=== PATIENT | male | born 1970 | race Caucasian/White ===

== ENCOUNTER 2022-08-21 10:09 | Outpatient (CLI) | payer OTHER, SELFPAY ==
--- OUTSIDE RECORDS SUMMARY | 2022-08-21 10:45 | XMS_ITS | Encounter Summary ---
:1970 Author Organization [facility] Address [address] [place] [address] Care Team Providers Name Role Phone Unavailable Primary Care Provider Unavailable Encounter Details Date Type Department Care Team Description 01/12/2013 Hospital Encounter HX [facility] Margarito Smith M.D. [address] [place] [phone] (Wo rk) Social History Tobacco Use Types Packs/Day Years Used Date Smoking Tobacco: Never Assessed Sex Assigned at Date Recorded Not on file documented as of this encounter Last Filed Vital Signs Vital Sign Reading Time Taken Comments Blood Pressure 138/78 01/12/2013 2:44 PM CDT Pulse 64 01/12/2013 2:08 PM CDT Temperature - - Respiratory Rate 20 01/12/2013 2:08 PM CDT Oxygen Saturation - - Inhaled Oxygen Concentration - - Weight 65.3 kg (143 lb 15.4 oz) 01/12/2013 2:08 PM CDT Height - - Body Mass Index - - documented in this encounter Progress Notes Yahir Smith M.D. - 01/12/2013 1:54 PM CDT [id number] HISTORY OF PRESENT ILLNESS Parminder is a 42-year-old male who presents to clinic today for a blood pressure check. Patient states that the last few times he has gone to the dentist's office, they have told him that his blood pressure was elevated. His became concerned and so recommended that he come into the clinic today to have his blood pressure checked and discuss options. Patient states that he otherwise feels well. He does not have any problems with persistent headaches or dizziness. He denies having chest pressure, chest pain or palpitations. He does get occasional migraines, but he does have an aura associated with it, as he will lose his peripheral vision and will get moving color of lights and he will start a medication which usually resolves it and he very rarely progresses to go on to have a full-blown migraine. If he does not catch the symptoms and take medication when he gets the aura, he will develop a headache. He believes he probably started getting these migraines in the past 10 years. His just giv es him an zmdy-azi-fmpjubr medication, he believes it is Excedrin but is not for sure. He denies problems with shortness of breath or dyspnea on exertion. He does not have problems with lower extremityedema or PND. PAST MEDICAL/SURGICAL HISTORY 1. Migraines. 2. Vasectomy. CURRENT MEDICATIONS Uceo-jic-tkpdidt migraine headache medication as needed. ALLERGIES No known drug allergies. Has some allergy to [place] dust which causes rhinitis and cough. SOCIAL HISTORY Patient is not a smoker. He does use alcohol. He estimates he probably has a couple glasses of wine 2 to 3 days per week and just on a social basis. FAMILY HISTORY Mother is healthy. Father is healthy. He believes that his maternal great- grandmother had some hypertension. There is a history of strokes on his paternal side, as his paternal grandfather had a stroke. Maternal grandfather had Alzheimer. Maternal grandmother had some heart problems, as he knows she had a pacemaker, and a maternal aunt had a history of a brain aneurysm. He does have siblings who are all healthy. SYSTEMS REVIEW No problems with fevers, chills or vision changes. No difficulty with swallowing. Please see HPI above for cardiovascular risks. No abdominal pain, nausea, vomiting, diarrhea. Bowel movements are fairly regular. No blood in his stool or black-tarry stools. He does not have any problems with urination or sexual dysfunction. No problems with numbness or tingling or lower extremity swelling. He does exercise; he tends to do more walking in the summer when the weather is nice in the spring, summer and fall months, but he also does do lifting of some weights once in a while, on a osroxt-oturp-p-week basis. His weight has been fairly stable. VITAL SIGNS Temperature of 37, pulse of 64, respiratory rate of 20, O2 sat 98% on room air. Blood pressure 136/80; on repeat it was 138/78. Weight of 65.3kg. PHYSICAL EXAMINATION GENERAL: Patient is alert. He does not appear to be in acute distress. HEENT: Head is normocephalic, atraumatic. Pupils equal, round, and reactive to light. Extraocular muscles are intact. There is no conjunctivitis or scleral icterus. Tympanic membranes are pearly evans with a good light reflex. Oropharynx shows moist mucous membranes; no erythema or exudates. NECK: Supple. No lymphadenopathy, thyromegaly or carotid bruits. RESPIRATORY: Lungs are clear on auscultation without wheezes or crackles. CARDIOVASCULAR: Heart is regular rate and rhythm. There is a normal S1, S2. No murmurs, gallops or rubs. Pedal pulses palpable and symmetric. ABDOMEN: Soft, nontender, nondistended. Positive bowel sounds. No hepatosplenomegaly. I cannot appreciate any abdominal bruits. GENITOURINARY: Deferred. NEUROLOGIC: He is alert and oriented x3. Cranial nerves II through XII are intact. There are no focal neurologic deficits. IMPRESSION/REPORT/PLAN Prehypertension. At this time discussed with patient that he is likely in the prehypertension stagesand we reviewed what goal blood pressure ranges are. Encouraged him to start with some therapeutic lifestyle modifications, including a low-salt diet. Did give him a handout on the DASH diet. Also discussed importance of getting some regular cardiovascular exercise. He may certainly continue with doing more isometric exercises with weightlifting but also include cardiovascular exercises for heart health. Patient unfortunately was not fasting today but I did discuss with him making sure that we reduce his other risk factors, such as checking a cholesterol panel as well as making sure that his kidneyfunction is normal. We discussed the risks of uncontrolled hypertension. I did encourage him to maybe check his blood pressure occasionally when he is at the grocery store or pharmacy and keep a running log of them. I would like to see him back in about 4 to 6 months for a followup and a recheck, and if he starts to become more elevated with a systolic blood pressure greater than 140, I would recommend starting him on some medication to help reduce his risk for end-organ damage. Patient will return for blood work and we will notify him of those test results when they are completed. If he has any further concerns, he should call or return to clinic. Yahir Smith M.D./kehinde Electronically Signed By: YAHIR SMITH MD On: 04/20/2013 08:35 AM Source: [facility] MHSDOLBEYNONRADSYS Document Id: [id number] documented in this encounter Miscellaneous Notes Miscellaneous - Yahir Smith M.D. - 01/12/2013 2:44 PM CDT Ambulatory Vitals Height Weight Ambulatory Vitals Height Weight Entered On: 01/12/2013 14:44 CDT Performed On: 01/12/2013 14:44 CDT by YAHIR SMITH MD Vitals/Ht/Wt Systolic Blood Pressure : 138 mmHg Diastolic Blood Pressure : 78 mmHg NIBP Mean : 98 mmHg YAHIR SMITH MD - 01/12/2013 14:44 CDT Source: [facility] POWERCHART Document Id: [id number] CDT!5 Miscellaneous - Conversion, Historical Provider Ser - 01/12/2013 2:08 PM CDT Adult Intermediate Accountant Intake/History Adult Intermediate Accountant Intake/History Entered On: 01/12/2013 14:11 CDT Performed On: 01/12/2013 14:08 CDT by ANISHA MONTANO Intake Chief Complaint : BLOOD PRESSURE CHECK Temperature Core : 37.0 DegC(Converted to: 98.6 DegF) Peripheral Pulse Rate : 64 /min Respiratory Rate : 20 /min Heart Rhythm : Regular Systolic Blood Pressure : 136 mmHg Diastolic Blood Pressure : 80 mmHg NIBP Mean : 99 mmHg BP Location : Right upper extremity Blood Pressure Cuff Size : Regular SpO2 : 98 % Actual Weight : 65.3 kg(Converted to: 143 lb 15 oz) Dosing Weight Clinic : 65.3 kg ANISHA MONTANO - 01/12/2013 14:08 CDT General Info Languages : Sinhala ANISHA MONTANO - 01/12/2013 14:08 CDT Subjective Pain Symptoms : No ANISHA MONTANO - 01/12/2013 14:08 CDT Dependent Habits Tobacco Use/Currently Using : No Smoking Status : Never smoker ANISHA MONTANO - 01/12/2013 14:08 CDT Source: [facility] [employer] Document Id: [id number] CDT!22 documented in this encounter Plan of Treatment Not on filedocumented as of this encounter Visit Diagnoses Not on filedocumented in this encounter
--- OUTSIDE RECORDS SUMMARY | 2022-08-21 10:45 | XMS_ITS | Encounter Summary ---
:1970 Author Organization [facility] Address [address] [place] [address] Care Team Providers Name Role Phone Unavailable Primary Care Provider Unavailable Encounter Details Date Type Department Care Team Description 01/19/2013 Hospital Encounter HX [facility] Margarito Coronado M.D. [address] [place] [phone] (Wo rk) Social History Tobacco Use Types Packs/Day Years Used Date Smoking Tobacco: Never Assessed Sex Assigned at Date Recorded Not on file documented as of this encounter Miscellaneous Notes Miscellaneous - Yahir Coronado M.D. - 01/21/2013 3:40 PM CDT Normal Results Letter 21 Jan 2013 REBECCA CASTILLO [address] [place] [id number] Dear REBECCA JONATHAN, I am pleased to report the results from your most recent blood work. Your kidney function (creatinine) is normal as well as your electrolytes (sodium, potassium). Your total cholesterol level is slightly high at 226, the rest of your lipid types (HDL good cholesterol and LDL bad cholesterol) are ac ceptable. I do recommend that you follow a low fat and cholesterol diet in addition to the low salt diet that we discussed in the office. I do recommend having this monitored every 3-5 years. If you have any questions about your blood work, please do not hesitate to contact the office. Result Name Current Result Normal Range Sodium Lvl (mmol/L) 139 01/19/2013 135 - 145 Potassium Lvl (mmol/L) 4.3 01/19/2013 3.5 - 5.0 Chloride (mmol/L) 102 01/19/2013 95 - 106 CO2 (mmol/L) 26 01/19/2013 21 - 32 AGAP (mmol/L) 15 01/19/2013 7 - 16 Glucose Fasting (mg/dL) 81 01/19/2013 70 - 99 Creatinine (mg/dL) 0.9 01/19/2013 0.8 - 1.3 EGFR (MDRD) >60.0 01/19/2013 >=60.0 - EGFR (MDRD) >60.0 01/19/2013 >=60.0 - BUN (mg/dL) 17 01/19/2013 5 - 24 Calcium Lvl (mg/dL) 9.6 01/19/2013 8.4 - 10.3 Cholesterol (mg/dL) (H) 226 01/19/2013 120 - 200 Trig (mg/dL) 101 01/19/2013 35 - 185 HDL (mg/dL) 83 01/19/2013 >=40 - LDL Calculated (mg/dL) 123 01/19/2013 60 - 130 Chol/HDL Ratio 2.7 01/19/2013 0.0 - 4.5 LDL/HDL 1 01/19/2013 Sincerely, YAHIR CORONADO [address] [place] [id number] Electronic Signature Electronically Signed By: YAHIR CORONADO MD On: 21 Jan 2013 This document has images extracted. Source: [facility] [employer] Document Id: [id number] Electronically signed by Julissa [facility] University Hospitalstan Deployment Engineer [id number] at 02/20/2017 11:41 AM CDT documented in this encounter Plan of Treatment Not on filedocumented as of this encounter Procedures Procedure Name Priority Date/Time Associated Diagnosis Comme nts LIPID PANEL, S Routine 01/19/2013 8:40 AM Results for this CDT procedure are i n the results section. BASIC METABOLIC Routine 01/19/2013 8:40 AM Result s for this PANEL, S/P CDT procedure are i n the results section. documented in this encounter Results BMP (Basic Metabolic Panel) (01/19/2013 8:40 AM CDT) P athologist Signature Sodium, S 139 135 - 145 POWERCHART MMOLL Potassium, S 4.3 3.5 - 5.0 POWERCHART MMOLL Chloride, S 102 95 - 106 POWERCHART MMOLL CO2 Total 26 21 - 32 POWERCHART MMOLL Glucose, 81 70 - 99 POWERCHART Fasting, S MGDL BUN (Blood Urea 17 5 - 24 POWERCHART Nitrogen), S MGDL Creatinine 0.9 0.8 - 1.3 POWERCHART MGDL Calcium, Total, 9.6 8.4 - 10.3 POWERCHART S MGDL Anion Gap 15 7 - 16 POWERCHART MMOLL HXeGFR (MDRD) >60.0 >=60.0 POWERCHART eGFR >60.0 >=60.0 POWERCHART Black/ Specimen (Source) Anatomical Collection Method Collection Time Re ceived Time Location / / Volume Laterality Blood 01/19/2013 8:40 AM CDT Yahir Coronado M.D. LAB BLOOD ADD-ON Performing Organization Address City/State/ZIP Code Phon e Number POWERCHART (ABNORMAL) Lipid Panel (01/19/2013 8:40 AM CDT) [facility] gist Method Time Signature Cholesterol, Total 226 (H) 120 - 200 POWERCHART MGDL HX HDL 83 >=40 MGDL POWERCHART Triglycerides 101 35 - 185 POWERCHART MGDL Calculated LDL 123 60 - 130 POWERCHART MGDL Total 2.7 0.0 - 4.5 POWERCHART Cholesterol/HDL Ratio HXLDL/HDL 1 POWERCHART Specimen (Source) Anatomical Collection Method Collection Time Re ceived Time Location / / Volume Laterality Blood 01/19/2013 8:40 AM CDT Yahir Coronado M.D. LAB BLOOD ADD-ON Performing Organization Address City/State/ZIP Code Phon e Number POWERCHART documented in this encounter Visit Diagnoses Not on filedocumented in this encounter
--- OUTSIDE RECORDS SUMMARY | 2022-08-21 10:45 | XMS_ITS | Encounter Summary ---
:1970 Author Organization [facility] Address [address] [place] [address] Care Team Providers Name Role Phone Elsewhere, Pcp Primary Care Provider Unavailable Reason for Visit Reason Comments Sinus Symptoms since Thurs noct; +fever, or bital pressure Encounter Details Date Type Department Care Team Description 12/04/2020 Office Visit Urgent Care, [facility], Conges tion Sinus (Primary Dx); [place], in [facility] Goldie Bradshaw APRN, Fever O f Unknown Origin [place], [place] C.N.P., D.N.P. [address] [place] [address] [place] [phone] (Wo rk) Social History Tobacco Use Types Packs/Day Years Used Date Smoking Tobacco: Never Smokeless Tobacco: Never Sex Assigned at Date Recorded Not on file documented as of this encounter Last Filed Vital Signs Vital Sign Reading Time Taken Comments Blood Pressure 134/93 12/04/2020 10:24 AM CDT Pulse 66 12/04/2020 10:24 AM CDT Temperature 36.9 ??C (98.4 ??F) 12/04/2020 10:24 AM CDT Respiratory Rate 18 12/04/2020 10:24 AM CDT Oxygen Saturation 97% 12/04/2020 10:24 AM CDT Inhaled Oxygen Concentration - - Weight 63 kg (138 lb 14.2 oz) 12/04/2020 10:24 AM CDT Height 171 cm (5' 7.32) 12/04/2020 10:24 AM CDT Body Mass Index 21.55 12/04/2020 10:24 AM CDT documented in this encounter Patient Instructions Patient InstructionsGoldie Alexander APRN, C.NDean, D.N.P. - 12/04/2020 10:15 AM CDT Home care measures for relief of sinus symptoms as needed such as steam showers, sinus massage, and Neti Pot use. If unable to use Neti Pot, may benefit from using saline nasal spray a couple times a day. Take claritin or mague or zyrtec daily to help dry up sinuses as well. Off brand is fine. COVID-19 results will be available online in a couple hours. Use a humidifier in the room for the next 10-14 days. May use fuge-xun-znkibdv Flonase to help with congestion. Drink warm liquids throughout the day. Follow-up if no improvement in 5-7 days or if new or concerning symptoms develop. documented in this encounter Progress Notes Goldie Alexander APRN, C.N.P., Tayler.N.P. - 12/04/2020 10:15 AM CDT SUBJECTIVE CHIEF COMPLAINT / REASON FOR VISIT Sinus Symptoms (since ; +fever, orbital pressure). HISTORY OF PRESENT ILLNESS Parminder Ruff is a 50 y.o. male who presents with known COVID-19 exposure last Saturday. He reports that he got a test on that came back negative but that he is not feeling any better. He reports he has been taking tylenol and OTC generic cold medicine with minimal relief. He reports congestion, runny nose, slight cough, sore throat, and fevers. REVIEW OF SYSTEMS A brief review of systems was negative except for that mentioned in the history of present of illness. The patient's social history, medical history, and home medications were reviewed in the electronic medical record. ALLERGIES/CONTRAINDICATIONS No Known Allergies OBJECTIVE VITAL SIGNS BP (!) 134/93 (BP Location: Right arm, Patient Position: Sitting, Cuff Size: Regular) Pulse 66 Temp 36.9 ??C (Temporal) Resp 18 Ht 171 cm Wt 63 kg SpO2 97% BMI 21.55 kg/m?? PHYSICAL EXAMINATION General: This patient is alert and in no acute distress. HEENT: Pupils are PERRLA. Conjunctivae clear without hemorrhages or exudates. Auditory canals are normal without erythema or edema. TMs are pearly evans and with effusions bilaterally without erythema. Oral cavity is adequately hydrated. Posterior pharynx is erythematous with drainage present. Neck: Supple without lymphadenopathy. Respiratory: Effort is easy. Lung sounds are clear to auscultation. Cardiovascular: S1, S2 are present. Normal rate and rhythm. Musculoskeletal: Grossly intact. No deformities are noted. Skin: Normal color, temperature and moisture. No rashes or lesions are noted. ASSESSMENT / PLAN #1 Congestion Sinus #2 Fever Of Unknown Origin Other orders - SARS Coronavirus-2 RNA, V Symptomatic Home care measures for relief of sinus symptoms as needed such as steam showers, sinus massage, and Neti Pot use. If unable to use Neti Pot, may benefit from using saline nasal spray a couple times a day. Take claritin or mague or zyrtec daily to help dry up sinuses as well. Off brand is fine. COVID-19 results will be available online in a couple hours. Use a humidifier in the room for the next 10-14 days. May use llhb-fpo-iasnsoh Flonase to help with congestion. Drink warm liquids throughout the day. Follow-up if no improvement in 5-7 days or if new or concerning symptoms develop. Patient verbalizedunderstanding and agrees with this plan. No further needs at this time. Electronically signed by: Sarahi Alexander APRN, C.N.P., D.N.P. 12/04/20 10:44 AM CDT documented in this encounter Plan of Treatment Not on filedocumented as of this encounter Procedures Procedure Name Priority Date/Time Associated Diagnosis Comme nts IFLU A, B, SARS STAT 12/04/2020 10:49 AM Resul ts for this COV-2, PCR, RAPID,V CDT procedur e are in the results section. documented in this encounter Results Influenza A/B, SARS CoV-2, PCR, Rapid, Varies (12/04/2020 10:49 AM CDT) P athologist Signature Influenza A, CANCELED 12/04/2020 NPRG PCR, Rapid, V 10:50 AM CDT Comment: Result canceled by the ancillar y. Influenza B, PCR, Rapid, V CANCELED 12/04/2020 10 :50 AM CDT NPRG Comment: Result canceled by the ancillar y. SARS CoV-2, PCR, Rapid, V Undetected Undetected 12/04/2020 1 1:12 AM CDT NPRG Comment: ----ADDITIONAL INFORMATION---- Testing was performed using the Nilda SA RS-CoV-2 and Influenza A/B Reagent assay from [employer], which has received Emergency Use Authori zation(EUA) by the U.S. Food and Drug Administration . Fact sheets for this Emergency Use Autho rization (EUA) assay can be found at the following link s: For Healthcare Providers: https://www.fda.gov/media/567191/downloa d For Patients: https://www.fda.gov/media/568731/downloa d Infl A/B, SARS CoV-2, PCR, Swab, Nasopharynx 12/04 10:49 AM CDT NPRG Source Specimen Anatomical Collection Method Collection Time Receive d Time (Source) Location / / Volume Laterality Varies 12/04/2020 10:49 12/04/2020 AM CDT 10:49 AM CDT Goldie Alexander APRN, C.N.P., D.N.P. LAB MICROBI OLOGY - GENERAL ORDERABLES Performing Organization Address City/State/ZIP Code Phon e Number [facility]- [address] [place], [place] [address] [place] [address] [place] documented in this encounter Visit Diagnoses Diagnosis Congestion Sinus - Primary Fever Of Unknown Origin documented in this encounter Additional Health Concerns Infection Onset Date Last Indicated Resolved Time COVID19 Pending 12/04/2020 12/04/2020 12/04/2020 10:50 AM CDT COVID19 Pending 12/04/2020 12/04/2020 12/04/2020 11:12 AM CDT documented as of this encounter Care Teams Medical Affairs Manager Relationship Specialty Start Date End Date Elsewhere, Pcp PCP - General 05/24/19 documented as of this encounter
--- OUTSIDE RECORDS SUMMARY | 2022-08-21 10:45 | XMS_ITS | Encounter Summary ---
:1970 Author Organization [facility] Address [address] [place] [address] Care Team Providers Name Role Phone Unavailable Primary Care Provider Unavailable Encounter Details Date Type Department Care Team Description 03/27/2016 Hospital Encounter HX [facility] Alfie Marquez M .D. Social History Tobacco Use Types Packs/Day Years Used Date Smoking Tobacco: Never Assessed Sex Assigned at Date Recorded Not on file documented as of this encounter Last Filed Vital Signs Vital Sign Reading Time Taken Comments Blood Pressure 122/80 03/27/2016 8:45 AM CDT Pulse - - Temperature - - Respiratory Rate - - Oxygen Saturation - - Inhaled Oxygen Concentration - - Weight 63.1 kg (139 lb 1.8 oz) 03/27/2016 8:45 AM CDT Height - - Body Mass Index - - documented in this encounter Medications at Time of Discharge Medication Sig Dispensed Refills Start Date End Date lisinopriL Take 1 tablet by 0 03/22/2013 (PRINIVIL,ZESTRIL) 10 mg mouth daily. tablet documented as of this encounter Consult Notes Alfie Marquez M.D. - 03/27/2016 8:37 AM CDT [id number] CHIEF COMPLAINT/REASON FOR VISIT Right ear pain with hearing loss. HISTORY OF PRESENT ILLNESS This is a 45-year-old gentleman seen in consultation for above complaint at the request of Yahir Smith. HISTORY OF PRESENT ILLNESS This is a 45-year-old gentleman who states that he hears some fluttering in his right ear at times. He denies any significant hearing changes or any pain, drainage, dizziness. He states at night he does hear some ringing. PAST MEDICAL/SURGICAL HISTORY, MEDICATION, FAMILY HISTORY Please refer to chart dated 03/27/2016, under the summary review provider ambulatory tab in the medical record. VITAL SIGNS Temperature 35.6, blood pressure 122/80. PHYSICAL EXAMINATION GENERAL: No acute distress. Patient alert, oriented x3. EYES: PERRL. EOMI. Ears: Bilateral TMs are intact. No perforations or effusions seen. Face: Cranial nerve 7 intact. Symmetric. No scars or deformities seen. Nose, no rhinorrhea. No mucopurulence. Nasalmucosa is pink. Oral cavity is clear. Tongue mobile. Floor of mouth soft. Oropharynx is clear. NECK: Flat. No mass or adenopathy palpated. Tuning fork test performed. Bilateral air conduction greater than bone conduction bilaterally. Bilateral Jeffries is midline. Audiogram is reviewed with the patient, which shows completely normal hearing, normal audiogram. IMPRESSION/REPORT/PLAN 1. Possible temporomandibular joint on the right 2. Mild tinnitus. PLAN: At this time we will see him back as needed. Alfie Marquez M.D./pos cc: Yahir Smith M.D. [facility] [place] [address] CHART SIGNED BUT NOT REVIEWED TO EXPEDITE PROCESSING Electronically Signed By: ALFIE MARQUEZ MD On: 04/27/2016 10:36 AM Modified by and Electronically Signed by: ALIFE MARQUEZ MD On: 04/27/2016 10:36 AM Source: [facility] MHSDOLBEYNONRADSYS Document Id: [id number] documented in this encounter Miscellaneous Notes Miscellaneous - Alfie Marquez M.D. - 03/27/2016 10:28 AM CDT Ambulatory Patient Summary [address] [place], [place] [id number] Visit Information Name: REBECCA CASTILLO Shayy [facility] Number: [id number] Current Date: 03/27/2016 10:28:28 Physicians Attending Provider: ALFIE MARQUEZ MD Primary Care Provider: YAHIR SMITH MD REBECCA CASTILLO has been given the following list of follow-up instructions, medication list, and patient education materials: Follow-up Instructions Your Medications Here is a list of your medications. It is important to take your medications as directed. Use a pillbox or chart to help remind you to take your medications. Please let your doctor or nurse know if you have problems taking your medications. Medication/Strength How to Take Indications/Special Instructions/Comments/Notes for Patient Medication Changes/Routing lisinopril (lisinopril 10 mg oral tablet) 1 Tablet(s), Oral, once a day Stop Taking the Following Medications: Medication list as of 03-27-16 10:28 Attention: If you have any medications at home that are not on this list, DO NOT take them until youcontact your provider for clarification. Give a copy of your medication list to your primary care provider. Update your medication list any time medications or doses are changed and carry your medication list at all times in case of emergency. Electronically Signed By: ALFIE MARQUEZ MD Signed On:27-MAR-2016 10:28:27 Your Allergies & Intolerances Substance Reaction Symptoms Category Comments No Known Allergies Drug Your Problem List Problem Status Onset Comments Elevated Blood Pressure Active 01/12/2013 Pain Ear R Active Your Upcoming Appointments Date Time Location Provider No Appointments found Attention: Contact your local Clinic if further appointment detail needed. Consider Using Patient Online Services Patient Online Services is a secure online and Mobile application that lets you: ?? View lab and test results ?? View portions of your medical record including clinical notes, immunizations and discharge summaries ?? Request an appointment or medication refill ?? Review your appointment schedule ?? Send secure messages to your care team Its easy to create an account if you dont have one. Go to [email or web address] and click on Create Your Account. Then, follow the directions to complete the online form. Youll be asked for your [facility] number which you can find at the top of this document. Your Goals/Additional instructions: Source: [facility] POWERCHART Document Id: [id number] Miscellaneous - Alfie Marquez M.D. - 03/27/2016 10:28 AM CDT Ambulatory Discharge Medication List [place] [id number] [facility], [address] [place], [place] [id number] Visit Information Name: REBECCA CASTILLO [facility] Number: [id number] Visit Date: 03/27/2016 10:28:28 Attending Provider: ALFIE MARQUEZ MD Primary Care Provider: YAHIR SMITH MD REBECCA CASTILLO has been given the following list of medications: Your Medications It is important to take your medications as directed. Use a pill box or chart to help remind you to take your medications. Please let your doctor or nurse know if you have problems taking your medications. Medication/Strength How to Take Indications/Special Instructions/Comments/Notes for Patient Medication Changes/Routing lisinopril (lisinopril 10 mg oral tablet) 1 Tablet(s), Oral, once a day Stop Taking the Following Medications: Medication list as of 03-27-16 10:28 Attention: If you have any medications at home that are not on this list, DO NOT take them until youcontact your provider for clarification. Give a copy of your medication list to your primary care provider. Update your medication list any time medications or doses are changed and carry your medication list at all times in case of emergency. 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 Intake/History Entered On: 03/27/2016 8:47 CDT Performed On: 03/27/2016 8:45 CDT by ANNAMARIA BALLESTEROS [facility] Intake Chief Complaint : right ear pain with hearing loss, hearing loss comes and goes Onset of Symptoms : a couple of months Temperature Core : 35.6 DegC(Converted to: 96.1 DegF) (LOW) Systolic Blood Pressure : 122 mmHg Diastolic Blood Pressure : 80 mmHg NIBP Mean : 94 mmHg BP Location : Left upper extremity Blood Pressure Cuff Size : Regular Actual Weight : 63.1 kg(Converted to: 139 lb 2 oz) Weight Source : Standing scale Dosing Weight Clinic : 63.1 kg ANNAMARIA BALLESTEROS [facility] 03/27/2016 8:45 CDT General Info Information Given By : Patient Preferred Communication Mode : Verbal Languages : Colombian Is Patient Female and 13-50 no hysterectomy : No ANNAMARIA BALLESTEROS [facility] 03/27/2016 8:45 CDT Subjective Pain Symptoms : No ANNAMARIA BALLESTEROS [facility] 03/27/2016 8:45 CDT Dependent Habits Smoking Status : Never smoker Tobacco 2A : No Tobacco Use/Currently Using : No Tobacco Use/Last 30 Days : No Tobacco Use/Last 12 months : No ANNAMARIA BALLESTEROS [facility] 03/27/2016 8:45 CDT Source: [employer] Document Id: [id number] CDT!26 documented in this encounter Plan of Treatment Not on filedocumented as of this encounter Visit Diagnoses Not on filedocumented in this encounter
--- OUTSIDE RECORDS SUMMARY | 2022-08-21 10:45 | XMS_ITS | Encounter Summary ---
:1970 Author Organization [facility] Address [address] [place] [address] Care Team Providers Name Role Phone Unavailable Primary Care Provider Unavailable Encounter Details Date Type Department Care Team Description 04/07/2013 Hospital Encounter HX [facility] Margarito Smith M.D. [address] [place] [address] (Wo rk) Social History Tobacco Use Types Packs/Day Years Used Date Smoking Tobacco: Never Assessed Sex Assigned at Date Recorded Not on file documented as of this encounter Last Filed Vital Signs Vital Sign Reading Time Taken Comments Blood Pressure 118/72 04/07/2013 2:43 PM CDT Pulse 68 04/07/2013 2:15 PM CDT Temperature - - Respiratory Rate 14 04/07/2013 2:15 PM CDT Oxygen Saturation - - Inhaled Oxygen Concentration - - Weight 63 kg (138 lb 14.2 oz) 04/07/2013 2:15 PM CDT Height - - Body Mass Index - - documented in this encounter Medications at Time of Discharge Medication Sig Dispensed Refills Start Date End Date lisinopriL Take 1 tablet by 0 03/22/2013 (PRINIVIL,ZESTRIL) 10 mg mouth daily. tablet documented as of this encounter Progress Notes Yahir Smith M.D. - 04/07/2013 1:57 PM CDT [id number] CHIEF COMPLAINT/REASON FOR VISIT Medication check. HISTORY OF PRESENT ILLNESS Rebecca is a 42-year-old male who presents to clinic today for followup of his medication. I saw patient here in clinic approximately 3 months ago with concerns of high blood pressure. Patient had been told several times at the dentist office that his blood pressure has been elevated. When he was seen in clinic he just had some mild elevation in the prehypertension to lower stage I hypertension area. We had discussed lifestyle changes and low-salt diet and monitoring. Blood work of a basic metabolic panel and a lipid profile were otherwise unremarkable. Patient states that then approximately 2 weeks ago he had an odd day of where he had acute onset of dizziness. He had a very difficult time focusingsecondary to the dizziness. He did not have any associated headache. Because of his hypertension andthe acute onset of his symptoms, his became concerned and actually did bring him to the emergency room. While there his blood pressure was noted to be elevated with 1 documented at 153/96. The thought was his symptoms were most likely attributable to vertigo, but there was also concern about his high blood pressure so did start him on a low dose of lisinopril at 10mg. Patient states that he has been tolerating this medication well on a daily basis. He has not really noticed any side effects from the medication. It took approximately 3 days for his dizziness to completely resolve but he did note that there was a large positional component to his dizziness. Patient denies having any problems with cough or shortness of breath. CURRENT MEDICATIONS Lisinopril 10mg daily. Zyrtec 10 mg daily as needed. VITAL SIGNS Pulse of 68, respiratory rate of 14, blood pressure of 120/62, on repeat 118/72, weight of 63kg. PHYSICAL EXAMINATION GENERAL: The patient is alert. He does not appear to be in any acute distress. HEENT: Head is normocephalic, atraumatic. Pupils equal, round and reactive to light. Extraocular muscles are intact. There is no conjunctivitis. RESPIRATORY: Lungs are clear on auscultation. CARDIOVASCULAR: Heart is regular rate and rhythm. No murmurs, gallops or rubs. EXTREMITIES: There is no lower extremity edema. IMPRESSION/REPORT/PLAN Hypertension, stage I. I would agree that patient may benefit in the fpc from starting on somelow dose of lisinopril. He seems to be tolerating the medication well so I would recommend that we continue with this. The patient is very thin, so I do not feel that he can do much modifications in the way of weight loss but again reiterated that he should make sure that he is following a low-sodium diet as this will reduce his risks. I would like him to stay on lisinopril for about the next 6 months. He would like to see if he can try coming off the medication. I did encourage him to purchase a blood pressure cuff and take some home blood pressure readings while he is on the medication and after about 6 months' time we could consider discontinuing it and seeing if over the next several months his blood pressure remained stable or if he finds that it starts to creep back up and if he finds an elevation in his blood pressure back to where it previously was he should resume the medication. Given that he has been on lisinopril now for the past 2 weeks I would like to recheck a basic metabolic panel to make sure he is not having any alterations in his potassium or kidney function. We will notify him of that test result when it returns. I would like to follow up with patient in about 3 months' time to see how he is doing. Yahir Smith M.D./ric Electronically Signed By: YAHIR SMITH MD On: 04/20/2013 08:32 AM Source: [facility] MHSDOLBEYNONRADSYS Document Id: [id number] documented in this encounter Miscellaneous Notes Miscellaneous - Marcelino Campbell - 07/01/2017 11:55 AM CDT pcp change From: MARCELINO CAMPBELL Sent: 07/01/2017 11:55:13 CDT Subject: pcp change Done [facility] PCP Field Change Request Reason for PCP Field Change Request: ( ) Patient Transferring Care to another non-[place] facility (ex. Moved out of state) change to PCP, Elsewhere ( ) Patient seen by another [place] provider for primary care needs. Provide name of new PCP. (x ) Other: (last OV 04/07/2013) Note: If patient is , nursing to notify HIM in order to enter a date into the EMR. *Ensure EMR documentation supports reason for change. ( ) Yes or ( ) No Patient has been contacted (if no, then Patient Access will call) Source: [facility] PartlyCHART Document Id: [id number] Miscellaneous - Yahir Smith M.D. - 04/13/2013 7:18 PM CDT Normal Results Letter 13 April 2013 REBECCA CASTILLO [address] [facility] [id number] Dear REBECCA CASTILLO, I am pleased to report that your results from the following diagnostic tests are normal. There is noevidence of effect of the lisinopril on your kidney function. If you have questions or concerns, please do not hesitate to call our office. Result Name Current Result Previous Result Normal Range Sodium Lvl (mmol/L) 139 04/07/2013 139 01/19/2013 135 - 145 Potassium Lvl (mmol/L) 4.6 04/07/2013 4.3 01/19/2013 3.5 - 5.0 Chloride (mmol/L) 102 04/07/2013 102 01/19/2013 95 - 106 CO2 (mmol/L) 28 04/07/2013 26 01/19/2013 21 - 32 AGAP (mmol/L) 14 04/07/2013 15 01/19/2013 7 - 16 Glucose Lvl (mg/dL) 97 04/07/2013 70 - 139 Creatinine (mg/dL) (L) 0.7 04/07/2013 0.9 01/19/2013 0.8 - 1.3 EGFR (MDRD) >60.0 04/07/2013 >60.0 01/19/2013 >=60.0 - EGFR (MDRD) >60.0 04/07/2013 >60.0 01/19/2013 >=60.0 - BUN (mg/dL) 16 04/07/2013 17 01/19/2013 5 - 24 Calcium Lvl (mg/dL) 10.1 04/07/2013 9.6 01/19/2013 8.9 - 10.1 Sincerely, YAHIR SMITH [address] [place] [id number] Electronic Signature Electronically Signed By: YAHIR SMITH MD On: 13 April 2013 This document has images extracted. Source: [facility] PartlyCHART Document Id: [id number] Electronically signed by Julissa [facility] Sales Account Coordinator [id number] at 02/20/2017 10:33 AM CDT Yahir Reyes M.D. - 04/07/2013 9:44 PM CDT Ambulatory Depart Summary [address] [address] Visit Information Name: REBECCA CASTILLO [facility] Number: [id number] Visit Date: 04/07/2013 21:44:46 Attending Provider: YAHIR SMITH MD Primary Care Provider: YAHIR SMITH MD REBECCA CASTILLO has been given the following list of medications: Your Medications It is important to take your medications as directed. Use a pill box or chart to help remind you to take your medications. Please let your doctor or nurse know if you have problems taking your medications. Medication/Strength Dose Route Frequency Indications/Special Instructions/Comments/Notes cetirizine (ZyrTEC 10 mg oral tablet) 10 mg Oral once a day as needed for allergy symptoms lisinopril (lisinopril 10 mg oral tablet) 10 mg Oral once a day Attention: If you have any medications at home that are not on this list, DO NOT take them until youcontact your provider for clarification. Additional Information: Source: [facility] LiveDeal Document Id: [id number] Yahir Reyes M.D. - 04/07/2013 9:44 PM CDT Ambulatory Patient Summary [address] [address] Visit Information Name: REBECCA CASTILLO [facility] Number: [id number] Current Date: 04/07/2013 21:44:46 Physicians Attending Provider: YAHIR SMITH MD Primary Care Provider: YAHIR SMITH MD Your Medications Here is a list of your medications. It is important to take your medications as directed. Use a pillbox or chart to help remind you to take your medications. Please let your doctor or nurse know if you have problems taking your medications. Medication/Strength Dose Route Frequency Indications/Special Instructions/Comments/Notes cetirizine (ZyrTEC 10 mg oral tablet) 10 mg Oral once a day as needed for allergy symptoms lisinopril (lisinopril 10 mg oral tablet) 10 mg Oral once a day Attention: If you have any medications at home that are not on this list, DO NOT take them until youcontact your provider for clarification. Your Allergies & Intolerances Substance Reaction Symptoms Category Comments No Known Allergies Drug Your Problem List Problem Status Onset Comments Elevated Blood Pressure Active 01/12/2013 Your Upcoming Appointments Date Time Location Reason Provider No Appointments found Your Goals/Additional instructions: [facility] Document Id: [id number] Miscellaneous - Yahir Smith M.D. 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 Intake/History Entered On: 04/07/2013 14:17 CDT Performed On: 04/07/2013 14:15 CDT by PRINCESS FUNES Intake Chief Complaint : Med Ck-Non Fasting Peripheral Pulse Rate : 68 /min Respiratory Rate : 14 /min Heart Rhythm : Regular Systolic Blood Pressure : 120 mmHg Diastolic Blood Pressure : 62 mmHg NIBP Mean : 81 mmHg Actual Weight : 63.0 kg(Converted to: 138 lb 14 oz) Dosing Weight Clinic : 63 kg PRINCESS FUNES - 04/07/2013 14:15 CDT General Info Languages : [place]inean PRINCESS FUNESAN - 04/07/2013 14:15 CDT Subjective Pain Symptoms : No PRINCESS FUNES - 04/07/2013 14:15 CDT Dependent Habits Tobacco Use/Currently Using : No Smoking Status : Never smoker ANNEMARIEJAIROPRINCESS Domínguez - 04/07/2013 14:15 CDT Source: [facility] LiveDeal Document Id: [id number] CDT!18 documented in this encounter Plan of Treatment Not on filedocumented as of this encounter Procedures Procedure Name Priority Date/Time Associated Diagnosis Comme nts BASIC METABOLIC Routine 04/07/2013 3:15 PM Result s for this PANEL, S/P CDT procedure are i n the results section. documented in this encounter Results (ABNORMAL) BMP (Basic Metabolic Panel) (04/07/2013 3:15 PM CDT) P athologist Signature Sodium, S 139 135 - 145 POWERCHART MMOLL Potassium, S 4.6 3.5 - 5.0 POWERCHART MMOLL Chloride, S 102 95 - 106 POWERCHART MMOLL CO2 Total 28 21 - 32 POWERCHART MMOLL BUN (Blood Urea 16 5 - 24 POWERCHART Nitrogen), S MGDL Creatinine 0.7 (L) 0.8 - 1.3 POWERCHART MGDL Calcium, Total, 10.1 8.9 - 10.1 POWERCHART S MGDL Anion Gap 14 7 - 16 POWERCHART MMOLL HXeGFR (MDRD) >60.0 >=60.0 POWERCHART eGFR >60.0 >=60.0 POWERCHART Black/ Glucose 97 70 - 139 POWERCHART MGDL Specimen (Source) Anatomical Collection Method Collection Time Re ceived Time Location / / Volume Laterality Blood 04/07/2013 3:15 PM CDT Yahir Smith M.D. LAB BLOOD ADD-ON Performing Organization Address City/State/ZIP Code Phon e Number POWERCHART documented in this encounter Visit Diagnoses Not on filedocumented in this encounter
--- OUTSIDE RECORDS SUMMARY | 2022-08-21 10:45 | XMS_ITS | Encounter Summary ---
:1970 Author Organization [facility] Address [address] [place] [address] Care Team Providers Name Role Phone Elsewhere, Pcp Primary Care Provider Unavailable Encounter Details Date Type Department Care Team Description 08/02/2020 Clinical Communication Division of [facility] Leeann Allen, Internal Medicine, ROrly Decker, in [phone] [place], [place] (Work) [address] [place] [phone] Social History Tobacco Use Types Packs/Day Years Used Date Smoking Tobacco: Never Sex Assigned at Date Recorded Not on file documented as of this encounter Miscellaneous Notes Telephone Encounter - Radha Allen ROrly - 08/02/2020 6:37 PM CST COVID-19 Nurse Line Screening ASSESSMENT COVID 19 Screening Have you had close contact with a person who has a LABORATORY CONFIRMED case of COVID-19 in the past14 days?: Yes - Continue screening. Over the last 48 hours have you had any of the following symptoms that are not related to a exsitingcondition?: No symptoms- (Continue Screening) Have you tested positive for COVID-19 in the last 45 days? : No (Continue Screening) Do any of the following quarantine criteria apply?: Close contact with COVID positive person within their infectious period or within 48 hours prior to symptoms onset PLAN Endpoint recommendation: Screening negative, testing indicated per request for work, sent to [facility] located at [address] [place] [address]. When you arrive at the site please text your name and date of to the number indicated on the outdoor signage above door and follow directions received. Testing hours are M-F 9 am to 4 pm and Sat-Sun 9 am to 12:30 pm. and Please avoid using public transportation per CDC recommendation. If you do not have personal transportation please self-quarantine until a personal transportation option is available. Care Points provided: STANDARD PRECAUTIONS FOR ALL PATIENTS: Wash hands often with soap and water for at least 20 seconds, especially after blowing your nose, coughing, sneezing, or having been in a public place. If soap and water aren't available, use a hand excel specialist that contains at least 60% alcohol. Avoid close contact with anyone who may be exhibiting respiratory symptoms such as coughing and sneezing. Avoid touching your eyes, nose and mouth. Clean and disinfect frequently touched surfaces daily. Cover your mouth and nose with a cloth face cover when around others or in public. The cloth face cover is not a substitute for social distancing. Continue to keep about 6 feet between yourself andothers. Monitor for symptoms. Do not take your temperature within 30 minutes of exercise. If your test or screen is negative and new symptoms develop please contact your provider if it has been greaterthan 72 hours since you were tested. Educational Resource: https://www.cdc.gov/coronavirus/2019-ncov/ esiygyw-gweyoqn-xqoy/index.html RECOMMENDATIONS TESTING CRITERIA IS MET: Stay home except to get medical care. Quarantine for 14 days if exposed to someone with a laboratory confirmed case of COVID-19 exposure regardless of your test results. Avoid public areas and public transportation. Separate yourself from other people and stay in a specific sick room if possible. Wear a cloth face covering, over your nose and mouth if youmust be around other people even at home). Cover your nose and mouth when coughing or sneezing. Contact employer/occupational health department to notify them that they are being tested. Seek emergent care if any of the following occur: 1) Trouble breathing, 2) Bluish lips or face, 3) Persistent pain or pressure in the chest, 4) Newly confused or unable to stay alert and awake. Notify appropriate care provider if any new or worsening symptoms. You may need re-testing if it has been greater than 72 hours after a negative COVID- 19 test result. 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
--- OUTSIDE RECORDS SUMMARY | 2022-08-21 10:45 | XMS_ITS | Encounter Summary ---
:1970 Author Organization [facility] Address [address] [place] [address] Care Team Providers Name Role Phone Elsewhere, Pcp Primary Care Provider Unavailable Reason for Visit Reason Onset Date Comments Outpatient COVID-19 Testing 08/02/2020 Encounter Details Date Type Department Care Team Description 08/02/2020 External Outreach Department of Jerardo Alexander [facility] [place] [facility] (Primary Harper, C.N.P., D.N.P. Dx) [address] [place] [phone] Social History Tobacco Use Types Packs/Day Years Used Date Smoking Tobacco: Never Sex Assigned at Date Recorded Not on file documented as of this encounter Progress Notes Leah Preston M.S.N., Hao., N.E.-B.C. - 08/02/2020 10:41 PM CST Encounter created for the drive-through COVID-19 testing. DEVELOPER documented in this encounter Plan of Treatment Not on filedocumented as of this encounter Procedures Procedure Name Priority Date/Time Associated Diagnosis Comme nts SARS CORONAVIRUS-2 Routine 08/03/2020 9:54 AM Infection Upper Results for this RNA, V ABAP DEVELOPER Respiratory procedure are i n the results section. documented in this encounter Results SARS Coronavirus-2 RNA, V Symptomatic (08/03/2020 9:54 AM ABAP DEVELOPER) [facility] Method Time Signature SARS-CoV-2 Swab, 08/03/2020 MKTO Specimen Nasopharynx 10:03 PM Source ABAP DEVELOPER SARS CoV-2 Undetected Undetected 08/03/2020 MKTO RNA, TMA 10:03 PM ABAP DEVELOPER Comment: SARS-CoV-2 RNA absent. This result does not rule out COVID-19 in the patient, as the sensitivity of the test depends o n the timing of the specimen collection and the quality of the specim en. Result should be correlated with patient's history and clinical presentat ion. ----ADDITIONAL INFORMATION---- This test is performed using the Aptima SARS-CoV-2 assay ([employer] which has received Emergency Use Authori zation (EUA) by the U.S. Food and Drug Administration. Fact sheets for this Emergency Use Autho rization (EUA) assay can be found at the following links: For Healthcare Providers: https://www.[employer] a.gov/media/788177/download For Patients: https://www.fda.gov/media/ 754442/download Specimen Anatomical Collection Method Collection Time Receive d Time (Source) Location / / Volume Laterality Varies 08/03/2020 9:54 AM 0 3:20 (Nasopharynx) ABAP DEVELOPER PM ABAP DEVELOPER Goldie Alexander APRN, C.N.P., D.N.P. LAB MICROBI OLOGY - GENERAL ORDERABLES Performing Organization Address City/State/[facility] Phon e Number [facility]- [address] [place] [id number] [place] [address] [address] documented in this encounter Visit Diagnoses Diagnosis Infection Upper Respiratory - Primary documented in this encounter Additional Health Concerns Infection Onset Date Last Indicated Resolved Time COVID19 Pending 08/02/2020 08/03/2020 08/03/2020 10:04 PM ABAP DEVELOPER documented as of this encounter Care Teams Assistant Cross Country Coach Relationship Specialty Start Date End Date Elsewhere, Pcp PCP - General 05/24/19 documented as of this encounter
--- OUTSIDE RECORDS SUMMARY | 2022-08-21 10:45 | XMS_ITS | Encounter Summary ---
:1970 Author Organization [facility] Address [address] [place] [address] Care Team Providers Name Role Phone Savita Coronado M.D. Primary Care Provider Encounter Details Date Type Department Care Team Description 01/05/2019 Orders Only Department of Family Yenifer Schultz Medicine in [place], [address] [place] [address] [place], [place] [phone] Social History Tobacco Use Types Packs/Day Years Used Date Smoking Tobacco: Never Sex Assigned at Date Recorded Not on file documented as of this encounter Plan of Treatment Not on filedocumented as of this encounter Visit Diagnoses Not on filedocumented in this encounter Care Teams Solution Lead Relationship Specialty Start Date End Date Savita Coronado M.D. PCP - General 03/07/17 05/23/[address] [place] [phone] documented as of this encounter
--- OUTSIDE RECORDS SUMMARY | 2022-08-21 10:45 | XMS_ITS | Encounter Summary ---
:1970 Author Organization [facility] Address [address] [place] [address] Care Team Providers Name Role Phone Unavailable Primary Care Provider Unavailable Encounter Details Date Type Department Care Team Description 03/27/2016 Hospital Encounter HX [facility] AUDIOLOGY Col david Ashraf Au.D. [address] [place] [address] (Wo rk) Social History Tobacco Use Types Packs/Day Years Used Date Smoking Tobacco: Never Assessed Sex Assigned at Date Recorded Not on file documented as of this encounter Medications at Time of Discharge Medication Sig Dispensed Refills Start Date End Date lisinopriL Take 1 tablet by 0 03/22/2013 (PRINIVIL,ZESTRIL) 10 mg mouth daily. tablet documented as of this encounter Consult Notes Alpa Ashraf Au.D. - 03/27/2016 10:51 AM CDT Audiologic Evaluation-Report CHIEF COMPLAINT/REASON FOR VISIT Tinnitus HISTORY Mr. Ruff comes in today for an audiologic evaluation with report of a fluttering noise in his right ear only. The noise began about one month ago and lasted for two weeks. He went to the [facility] during this time and his doctor told him it was viral and would go away. He reports it did go away, but came back. He currently does not hear the fluttering noise. He notes he has neck stiffness notably on the right side that began around the time of the fluttering noise. The noise does not match his pulse rate and he does not note a change in hearing due to the fluttering. He reports ringing in his ears, primarily at night. 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 He denies wearing hearing protected devices. 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 Otologic symptoms the patient notes: Otalgia: No Otorrhea: No Tinnitus: Yes see above Vertigo/Dizziness: No Imbalance: No Otologic Risk Factors: Family History: No Noise Exposure: Yes see above Chronic Otitis Media: No Otologic Surgery: No Otologic Trauma: No Head Trauma: No Use of Ototoxic Medication: No Meningitis: No EVALUATION An otoscopic examination was performed prior to testing that showed clear ear canals bilaterally. Audiologic evaluation showed normal hearing bilaterally through all tested frequencies. The word recognition scores were excellent bilaterally. Tympanometry was performed and showed type A tympanograms with normal ear canal volumes. This is consistent with intact and appropriately mobile tympanic membranes with normal middle ear pressure bilaterally. IMPRESSION/REPORT/PLAN Mr. Ruff presents today with normal hearing in both ears and excellent word recognition. We discussed the use of hearing protection devices, especially while he is drumming in order to preserve his hearing. Both custom and non- custom hearing protection devices were discussed, with an emphasis on musicians ear plugs. Mr. Ruff notes he struggles to hear speech when he is in a noisy environment, and we discussed the need to protect his hearing in order to prevent this from getting worse. He was advised to follow-up today with ENT to evaluate the fluttering noise he hears in his right ear. A copy of today test results as well as educational materials about hearing loss and communicationwere provided. RECOMMENDATIONS 1. Return for further testing if a change in hearing is noted. 2. Follow-up with ENT, as scheduled. DIAGNOSIS 1. Tinnitus This examination was completed by Arely Martinez, Audiology doctoral student, under my direct supervision. REFERRING PROVIDER Dr. Alfie Marquez Electronically Signed By: ALPA ASHRAF On: 03/27/2016 10:51 AM Source: [facility] POWERCHART Document Id: [id number] documented in this encounter Miscellaneous Notes Miscellaneous - Conversion, Historical Provider Ser - 03/27/2016 11:59 PM CDT Coding Summary-Paper Based CODING DATE: 04/02/2016 FINAL [facility] STATUS: * Discharged to Home or Self Care PAYOR: [employer] ADMIT DX: REASON FOR VISIT DX: FINAL DX: PRINCIPAL: H93.19 Tinnitus, unspecified ear SECONDARY: PROCEDURES DOCTOR NAME DATE NOTE: The code number assigned matches the documented diagnosis and / or procedure in the patient's chart. However, the narrative phrase printed from the coding software may appear abbreviated, or result in slightly different terminology. Coded By: ROXANNE CORRAL Date Saved: 04/02/2016 04:26 pm Source: [facility] Document Id: [id number] documented in this encounter Plan of Treatment Not on filedocumented as of this encounter Visit Diagnoses Not on filedocumented in this encounter
--- OUTSIDE RECORDS SUMMARY | 2022-08-21 10:45 | XMS_ITS | Clinical Summary ---
:1970 Author Organization [facility] Address [address] [place] [address] Care Team Providers Name Role Phone Elsewhere, Pcp Primary Care Provider Unavailable Source Comments Patient records contain information from all sites at [facility]. For routine questions regarding patient records, call [phone] during business hours, M-F 8:00 AM - 5:00 PM Central Time. Record requests for emergency care only can be directed to [phone] at any time.[facility] Allergies No known active allergies Medications Medication Sig Dispensed Refills Start Date End Date Status lisinopriL Take 1 tablet by 0 03/22/2013 A ctive (PRINIVIL,ZESTRIL) 10 mouth daily. mg tablet Active Problems Problem Noted Date Elevated Blood Pressure Without Hypertension 3 Social History Tobacco Use Types Packs/Day Years Used Date Smoking Tobacco: Never Smokeless Tobacco: Never Sex Assigned at Date Recorded Not on file Last Filed Vital Signs Vital Sign Reading [...] Mass Index 21.55 12/04/2020 10:24 AM CDT Plan of Treatment Health Maintenance Due Date Last Done Comments CT Colonography 1970 Cologuard 1970 Colonoscopy 1970 Colorectal Cancer Screening 1970 FIT 1970 HIV Screening 1970 Hepatitis B Vaccines (1 of 3 1970 - 3-dose series) Hepatitis C Screening 1970 Creatinine Level 04/07/2014 04/07/2013, 01/19/2013 Potassium Level 04/07/2014 04/07/2013, 01/19/2013 Sodium Level 04/07/2014 04/07/2013, 01/19/2013 Fasting Glucose for Diabetes 04/07/2016 04/07/2013, Screening 01/19/2013 Lipid (Cholesterol) Screening 01/19/2018 01/19/2013 Zoster Vaccines (1 of 2) 2019 Depression Screening (Annual 09/23/2021 PHQ-2) COVID-19 Vaccine (4 - Booster 01/26/2022 12/01/2021, for Pfizer series) 12/31/2020, 12/10/2020 Influenza Vaccine (#1) 2022 07/20/2020, 07/22/2019 DTaP,Tdap,and Td Vaccines (3 10/04/2027 10/04/2017, - Td or Tdap) 11/08/2008 Pneumococcal vaccine (0-64 Aged Out No lo nger eligible based years) on patient's age to complete this to [facility] Insurance Payer Benefit Plan / Subscriber ID Effective Phone Address T ype Group Dates PREFERREDONE PREFERREDONE [id number] 2020-Pr [phone] PPO ADMINISTRATIVE ADMINISTRATIVE esent [id number] SERVICES SERVICES [employer] [id number] (Home) [place] [phone] Care Teams Survey Superintendent Relationship Specialty Start Date End Date Elsewhere, Pcp PCP - General 05/24/19
--- OUTSIDE RECORDS SUMMARY | 2022-08-21 10:45 | XMS_ITS | Encounter Summary ---
:1970 Author Organization [facility] Address [address] [place] [address] Care Team Providers Name Role Phone Unavailable Primary Care Provider Unavailable Encounter Details Date Type Department Care Team Description 03/22/2013 Hospital Encounter HX [facility] Chula Cook M.D. [address] [place] [address] [phone] (Wo rk) Social History Tobacco Use Types Packs/Day Years Used Date Smoking Tobacco: Never Assessed Sex Assigned at Date Recorded Not on file documented as of this encounter Last Filed Vital Signs Vital Sign Reading Time Taken Comments Blood Pressure 153/96 03/22/2013 11:28 AM CDT Pulse 49 03/22/2013 11:28 AM CDT Temperature - - Respiratory Rate 12 03/22/2013 11:28 AM CDT Oxygen Saturation - - Inhaled Oxygen Concentration - - Weight - - Height - - Body Mass Index - - documented in this encounter Discharge Summaries Conversion, Historical Provider Ser - 03/22/2013 1:37 PM CDT ED Discharge Instructions [address] [place] [address] Name: PARMINDER CASTILLO Date of : 1970 12:00 PM Visit Date: 03/22/2013 11:24 AM [facility] Number: [id number] Address: [address] [place] [phone] Primary Care Provider: YAHIR SMITH MD IMPORTANT: [facility] in [place] would like to thank you for allowing us to assistyou with your healthcare needs. The following includes patient education materials and information regarding your injury/illness. Chief Complaint: Dizziness; DIZZINESS Follow-Up Instructions: With: Address: When: YAHIR SMITH [address] [place] [id number] Business (1) In 2 weeks 04/05/2013 Comments: Patient Education Materials: [id number] MEDICATION: MECLIZINE Meclizine (brand name: Antivert, Bonine, Dramamine, Jovanni-L-Tabs, Medi-Meclizine) is used to prevent dizziness, vertigo, and motion sickness. DIRECTIONS FOR USE: To prevent motion sickness, take the first dose 1 hour before travel. You may take this medicine with or without food. Repeat the dose 1 or 2 times a day or as directed by your doctor. If you are taking the chewable tablets, chew them thoroughly before swallowing. For control of dizziness and other conditions, this medicine works best when taken at regular intervals. After the first few days of treatment, once your symptoms improve, you may be able to take the medicine on an as needed basis. Discuss with your doctor. WHAT TO WATCH FOR: POSSIBLE SIDE EFFECTS: Drowsiness or fatigue (Reduce the dosage or wait longer between doses). Dry mouth (Chew gum or use a peppermint or other hard candy). Vision changes or problems with urination (Contact your doctor). ALLERGIC REACTION: Rash, itching, swelling, trouble breathing or swallowing (Contact your doctor or return to this facility promptly). MEDICAL CONDITIONS: Before starting this medicine, be sure your doctor knows if you have any of the following conditions: ?? Glaucoma ?? Prostate enlargement ?? Breathing problems ?? Seizures ?? or DRUG INTERACTION: May cause excess drowsiness when taken with alcohol, muscle relaxant, sedative, pain medicine, anti-seizure medicines, medicines for sleep, or other antihistamines. Use with caution. Before starting this medicine, be sure your doctor knows if you are taking any of the following drugs: pramlintide, drugs with similar side effects (other anticholinergic drugs such as atropine, tricyclic antidepressants, benztropine, scopolamine). WARNING: ?? Do not drive, ride a bicycle, or operate dangerous equipment while taking this medicine until youknow how it will affect you. [NOTE: This information topic may not include all directions, precautions, medical conditions, drug/food interactions, and warnings for this drug. Check with your doctor, nurse, or pharmacist for any questions that you may have.] ?? [id number] Alena David, [address] [place] [address], [place] [address]. All rights reserved. This information is not intended as a substitute for professional medical care. Always follow your healthcare professional's instructions. [id number] HIGH BLOOD PRESSURE -- NEW (begin tx) Your blood pressure was high enough today to start treatment with medicines. The cause of hypertension is unknown in most cases, but can be controlled with lifestyle changes and/or medicines. Hypertension may cause headache, dizziness, blurred vision, rushing sound in your ears, chest pain or shortness of breath. Sometimes it causes no symptoms at all. However, untreated hypertension increases the risk of heart attack and stroke. It is a serious health risk and should not be ignored. A normal blood pressure is 120/80 or less. The first (top) number is the systolic pressure. The second (bottom) number is the diastolic pressure. Hypertension exists when either the top number is 140 or higher, OR the bottom number is 90 or higher on repeated measurements. HOME CARE: All patients with hypertension should do the following to lower their pressure. If you are on medicines, then these methods may reduce or eliminate your need for medicine in the future. 1. Begin a weight loss program if you are overweight. 2. Reduce your salt intake. o Avoid high salt foods (olives, pickles, smoked meats, salted potato chips, etc.). o Do not add salt to your food at the table. o Use only small amounts of salt when cooking. 3. Begin an exercise program. Discuss with your doctor what type of exercise program would be best for you. It doesn't have to be difficult. Even brisk walking for 20 minutes three times a week is a good form of exercise. 4. Avoid medicines which contain heart stimulants. This includes many cold and sinus decongestant pills and sprays as well as diet pills. Check the warnings about hypertension on the label. Stimulants such as amphetamine or cocaine could be lethal for someone with hypertension. Never take these. 5. Limit your caffeine intake or switch to caffeine-free products. 6. Stop smoking. If you are a long-time smoker, this can be hard. Enroll in a stop-smoking program to improve your chance of success. Talk to your physician about ways to improve your chance of success. 7. Learning how to handle stress better is an important part of any program to lower blood pressure.Learn about relaxation methods such as meditation, yoga, or biofeedback. 8. If medicines were prescribed, take them exactly as directed. Missing doses may cause your blood pressure to get out of control. 9. Consider buying an automatic blood pressure machine (available at many pharmacies). Use this to monitor your blood pressure and report to your doctor. FOLLOW UP: Because a new blood pressure medicine was started today, it is important that you have your blood pressure rechecked to be sure you are responding well and that there are no serious side effects. Unless told otherwise, follow-up with your doctor or this facility within the next THREE DAYS. GET PROMPT MEDICAL ATTENTION if any of the following occur: ?? Chest pain or shortness of breath ?? Severe headache ?? Throbbing or rushing sound in the ears ?? Nosebleed ?? Sudden severe abdominal pain ?? Extreme drowsiness, confusion or fainting ?? Dizziness or vertigo (dizziness with spinning sensation) ?? Weakness of an arm or leg or one side of the face Difficulty with speech or vision ?? [id number], [place] [address]. All rights reserved. This information is not intended as a substitute for professional medical care. Always follow your healthcare professional's instructions. [id number] LABYRINTHITIS The inner ear is located behind the middle ear. It is part of the balance center of your body. When the inner ear becomes irritated or inflamed it causes an illness known as Labyrinthitis. It is mostoften due to a viral condition, but often a source is not found. Labyrinthitis causes sudden vertigo (a feeling that you or the room is spinning). There is a loss of balance when trying to walk, intense nausea and vomiting. Head movement from side to side, or changes in body position (from lying to sitting or standing) may worsen symptoms. An episode of vertigo may last seconds, minutes or hours. Once you are over the first episode of vertigo, it may never return. Sometimes symptoms recur off and on over several weeks or longer dependingon the cause. HOME CARE: 1. If symptoms are severe, rest quietly in bed. Change positions slowly. There is usually one position that will feel best, such as lying on one side or the other or lying on your back with your head slightly raised on pillows. 2. Reduce your salt intake until you are symptom free for one month. Fluid retention caused by salt can make this condition worse. 3. Do not drive or work with dangerous machinery for one week after symptoms disappear. Be cautious about using stairs. (In case of a sudden unexpected recurrence.) 4. Take medicine as prescribed to relieve your symptoms. Unless another medicine was prescribed for nausea, vomiting and vertigo, you may use icme-ymx-csmnchh motion sickness pills, such as meclizine (Bonine, Bonamine, Antivert) or dimenhydrinate (Dramamine). All these medicines may cause drowsiness. FOLLOW UP with your doctor or as advised by our staff. GET PROMPT MEDICAL ATTENTION if any of the following occur: ?? Worsening of vertigo, not controlled by medicine prescribed ?? Repeated vomiting not relieved by medicine prescribed ?? Increased weakness or fainting ?? Headache or unusual drowsiness Difficulty with vision, speech or movement of the face, arms or legs ?? [id number] [place] [address]. All rights reserved. This information is not intended as a substitute for professional medical care. Always follow your healthcare professional's instructions. ED Tests and Procedures: Order Status Discharge Prescriptions & Home Medications: Medication/Strength Dose Route Frequency Indications/Special Instructions/Comments/Notes meclizine (meclizine 25 mg oral tablet) 25 mg Oral three times a day as needed for Dizziness lisinopril (lisinopril 10 mg oral tablet) 10 mg Oral once a day Attention: If you have any medications at home not on this list, DO NOT take them until you contact your provider for clarification. Medication Reconciliation: Reconciliation is a process of identifying the most accurate list of all medications a patient is taking - including name, dosage, frequency, and route - and using this list to provide to the patient information about how to take those medications. PARMINDER CASTILLO or designee has reviewed the home medications you have listed with us. Review the following instructions: You have NOT received any prescriptions and you have told us you are not currently taking any home medications You have NOT received any prescriptions. You have been provided a discharge medications list and you may CONTINUE taking your medications as previously prescribed by your regular providers. You have received the listed prescriptions and BEGIN all listed prescriptions as directed. Since you have listed no home medications, please check with your family doctor if you are taking any other medications. You have received the listed prescriptions and BEGIN all listed prescriptions as directed. Youhave been provided a discharge medications list and you may CONTINUE all home medications as previously prescribed by your regular providers. You have received the listed prescriptions and BEGIN all listed prescriptions as directed. Youhave been provided a discharge medications list. The following CHANGES have been made to your medication list; Otherwise, CONTINUE all home medications as previously prescribed by your regular provider. IMPORTANT: We examined and treated you today on an emergency basis only. This was not a substitute for, or an effort to provide, complete medical care. In most cases, you must let your doctor check youagain. Tell y our doctor about any new or lasting problems. We cannot recognize and treat all injuries or illnesses in one Emergency Department visit. If you had special tests, such as EKG's or X-rays,we will review them again within 24 hours. We will call you if there are any new suggestions. Pleasefollow the instructions above carefully. If you are being transferred to another facility, your follow up plan of care will be determined by the receiving facility. If you are a patient that is being discharged from the Emergency Department after receiving narcotics or other medications that may impair your judgment you may be a risk to yourself or others if you operate a motor vehicle. We recommend that you arrange a ride home with a responsible constitution party. JONATHAN Laureano SCOTT M , or responsible constitution party have received this information and my questions have been answered. I have discussed any challenges I see with this plan with the nurse or physician. Patient Signature or Responsible Republican/Relationship Date Time Provider Signature Date Time Medication Reconciliation: Reconciliation is a process of identifying the most accurate list of all medications a patient is taking - including name, dosage, frequency, and route - and using this list to provide to the patient information about how to take those medications. PARMINDER CASTILLO or designee has reviewed the home medications you have listed with us. Review the following instructions: You have NOT received any prescriptions and you have told us you are not currently taking any home medications You have NOT received any prescriptions. You have been provided a discharge medications list and you may CONTINUE taking your medications as previously prescribed by your regular providers. You have received the listed prescriptions and BEGIN all listed prescriptions as directed. Since you have listed no home medications, please check with your family doctor if you are taking any other medications. You have received the listed prescriptions and BEGIN all listed prescriptions as directed. Youhave been provided a discharge medications list and you may CONTINUE all home medications as previously prescribed by your regular providers. You have received the listed prescriptions and BEGIN all listed prescriptions as directed. Youhave been provided a discharge medications list. The following CHANGES have been made to your medication list; Otherwise, CONTINUE all home medications as previously prescribed by your regular provider. IMPORTANT: We examined and treated you today on an emergency basis only. This was not a substitute for, or an effort to provide, complete medical care. In most cases, you must let your doctor check youagain. Tell your doctor about any new or lasting problems. We cannot recognize and treat all injuries or illnesses in one Emergency Department visit. If you had special tests, such as EKG's or X- rays, we will review them again within 24 hours. We will call you if there are any new suggestions. Please follow the instructions above carefully. If you are being transferred to another facility, your follow up plan of care will be determined by the receiving facility. If you are a patient that is being discharged from the Emergency Department after receiving narcotics or other medications that may impair your judgment you may be a risk to yourself or others if you operate a motor vehicle. We recommend that you arrange a ride home with a responsible constitution party. IJONATHAN SCOTT M , or responsible constitution party have received this information and my questions have been answered. I have discussed any challenges I see with this plan with the nurse or physician. Patient Signature or Responsible Republican/Relationship Date Time Provider Signature Date Time This document has images extracted. Please consider using bMenu for all your patient education needs. Source: [employer] Document Id: [id number] Conversion, Historical Provider Ser - 03/22/2013 1:37 PM CDT ED Depart Summary [facility] Emergency Department Clinical Discharge Summary PERSON INFORMATION Name PARMINDER CASTILLO Age 42 Years 1970 12:00 PM Sex Male Language Uzbek PCP YAHIR SMITH MD Marital Status Visit Id Visit Reason Dizziness; DIZZINESS Specialty Enc Type Emergency Med Service Emergency Medicine Referred by Track Group MAQN ED Discharge 03/22/2013 1:33 PM Tracking Id [id number] Checkout 03/22/2013 1:33 PM Checkin 03/22/2013 11:24 AM Acuity 3 -Urgent Dispo Type * Discharged to Home or Self Care Arrival 03/22/2013 11:24 AM Reg Status LOS 000 02:09 Address: [address] [place] [phone] Comment: PROVIDER INFORMATION Provider Role Provider Contact Time [facility] SALESPERSON Nurse 03/22/13 11:33 JOHN OROURKE MD ED Provider 03/22/13 11:36 DIAGNOSIS Vertigo 780.4 Comment: PATIENT EDUCATION INFORMATION Instructions: MECLIZINE; HYPERTENSION, New (Begin Tx); LABYRINTHITIS Follow up: With: Address: When: YAHIR SMITH [address] [place] [id number] [facility] (1) In 2 weeks 04/05/2013 Comments: Source: [facility] POWERCHART Document Id: [id number] documented in this encounter Medications at Time of Discharge Medication Sig Dispensed Refills Start Date End Date lisinopriL Take 1 tablet by 0 03/22/2013 (PRINIVIL,ZESTRIL) 10 mg mouth daily. tablet documented as of this encounter Nursing Notes Conversion, Historical Provider Ser - 03/22/2013 11:28 AM CDT ED Primary Assessment Document Has Been Updated ED Primary Assessment Entered On: 03/22/2013 11:31 CDT Performed On: 03/22/2013 11:28 CDT by JO HONG RN Reason For Visit (As Of: 03/22/2013 12:07:18 CDT) Problems(Active) Elevated Blood Pressure (ICD-9-CM :796.2 ) Name of Problem: Elevated Blood Pressure ; Onset Date: 01/12/2013 ; Recorder: YAHIR SMITH MD; Confirmation: Confirmed ; Classification: Medical ; Code: 796.2 ; Last Updated: 01/14/2013 17:40 CDT ; Life Cycle Status: Active ; Responsible Provider: YAHIR SMITH MD; Vocabulary: ICD-9-CM Diagnoses(Active) Dizziness Date: 03/22/2013 ; Diagnosis Type: Reason For Visit ; Confirmation: Complaint of ; Clinical Dx: Dizziness ; Classification: Medical ; Clinical Service: Emergency medicine ; Code: PNED ; Probability: 0 ; Diagnosis Code: [id number] Triage Chief Complaint Description : dizziness since yesterday morning. only when moving head, sitting still is ok. has had some congestion and took some otc pills for it. no OTOOLE or visual complaints JO HONG RN - 03/22/2013 12:04 CDT Information Given By : Patient Accompanied By : Significant other Mode of Arrival ED : Private vehicle Track : Medical Languages : Uzbek Vital Signs Assessed : Yes JO HONG RN - 03/22/2013 11:28 CDT Vital Signs Dosing Weight : 61 kg Dosing Weight Conversion to Pounds : 134.2 lb Estimated Weight : 61 kg Estimated Weight Conversion to Pounds : 134.2 lb JO HONG - 03/22/2013 12:04 CDT Temperature Core : 37.0 DegC(Converted to: 98.6 DegF) Peripheral Pulse Rate : 49 /min (<LLOW) Respiratory Rate : 12 /min (LOW) Systolic Blood Pressure : 153 mmHg (HI) Diastolic Blood Pressure : 96 mmHg (>HHI) NIBP Mean : 115 mmHg BP Location : Right upper extremity SpO2 : 99 % Oxygen Saturation Monitoring Frequency : Intermittent Oxygen Therapy : Room air JO HONG RN - 03/22/2013 11:28 CDT Pain Assessment Pain Symptoms : No JO HONG - 03/22/2013 11:28 CDT ED Physician Notification Time ED Physician Notification Time : 03/22/2013 11:30 CDT JO HONG - 03/22/2013 11:28 CDT CARMELINA CARMELINA Level 1 : No CARMELINA Level 2 : No CARMELINA Level 3 : Many Vital Signs CARMELINA : No JO HONG Sang - 03/22/2013 11:28 CDT DCP GENERIC CODE Tracking Group : MAQN ED Tracking Acuity : 3 -Urgent JO HONG - 03/22/2013 11:28 CDT Allergy (As Of: 03/22/2013 12:07:19 CDT) Allergies (Active) NKA Estimated Onset Date: Unspecified ; Created By: REMY BEDOLLA; Reaction Status: Active; Category: Drug ; Substance: NKA ; Type: Allergy ; Updated By: REMY BEDOLLA; Reviewed Date: 01/12/2013 14:08 CDT Respiratory Airway : Patent Respirations : Unlabored Respiratory Pattern : Regular Oxygen Therapy : Room air JO HONG - 03/22/2013 11:28 CDT Cardiovascular Heart Rhythm : Regular Skin Color : Normal for ethnicity Skin Description : Dry Skin Temperature : Warm JO HONG - 03/22/2013 11:28 CDT Neurological Neuro Detailed Assessment : Yes JO HONG - 03/22/2013 12:04 CDT Last Well Time Known : Not applicable Level of Consciousness : Alert Orientation : Oriented x 3 Characteristics of Speech : Clear Neuro Patient Stated Symptoms : Dizziness Loss of Consciousness : No JO HONG Sang - 03/22/2013 11:28 CDT Neuro Detailed ALLISON : Yes Facial Symmetry : Normal Extremity Movement : Equal Extremity Sensation : Normal Speech Characteristics : Normal JO HONG RN - 03/22/2013 12:04 CDT ED Psychosocial Affect/Behavior : Calm Domestic Abuse Concerns : None JO HONG RN - 03/22/2013 11:28 CDT Gastrointestinal Nutrition ED : Adequate JO HONG RN - 03/22/2013 11:28 CDT Musculoskeletal Fall Prevention Education Provided : Yes JO HONG RN - 03/22/2013 11:28 CDT Social Habits Tobacco Use/Currently Using : Yes Smoking Status : Unknown if ever smoke JO HONG RN - 03/22/2013 11:28 CDT Source: [employer] Document Id: [id number] CDT!16 documented in this encounter ED Notes Conversion, Historical Provider Ser - 03/22/2013 1:37 PM CDT ED Disposition Summary ED Disposition Summary Entered On: 03/22/2013 13:37 CDT Performed On: 03/22/2013 13:37 CDT by JO HONG RN ED Disposition Summary Accompanied By : Spouse Mode of Discharge : Ambulatory Transportation : Private vehicle Printed Discharge Instructions Given to Patient : Yes Patient Status at Discharge from ED : Improved JO HONG RN - 03/22/2013 13:37 CDT Source: [employer] Document Id: [id number] CDT!7 Chula Orourke M.D. - 03/22/2013 1:10 PM CDT Dizziness Patient: PARMINDER CASTILLO Age: 42 years Sex: Male : 1970 Author: JOHN OROURKE MD Attachments: None Associated Diagnosis: Vertigo 780.4 Basic Information Time seen: Date & time 03/22/2013 12:00:00. History source: Patient. Arrival mode: Private vehicle. History limitation: None. Additional information: Chief Complaint from Nursing Triage Note : Chief Complaint Description. 03/22/2013 11:28 CDT Chief Complaint Description dizziness since yesterday morning. only when movinghead, sitting still is ok. has had some congestion and took some otc pills for it. no OTOOLE or visual complaints (Modified) History of Present Illness Dizzy x1d; no fever headache, tinnitus or hearing loss. The patient presents with vertigo. The onset was 1 days ago. The course/duration of symptoms is constant. The character of symptoms is spinning and off-balance. The degree at present is moderate. The exacerbating factor is closing eyes. The relieving factor is none. Risk factors consist of none. Priorepisodes: none. Therapy today: none. Associated symptoms: none. Review of Systems Constitutional symptoms: No fever. Skin symptoms: Negative except as documented in HPI. ENMT symptoms: Nasal congestion, but no sinus pain. and Ear(s): no tinnitus, no decreased hearing. Respiratory symptoms: Negative except as documented in HPI. Neurologic symptoms: Negative except as documented in HPI, but no headache, no altered level of consciousness, no numbness, no tingling or no weakness. Psychiatric symptoms: Negative except as documented in HPI. Health Status Allergies: . Allergic Reactions (Selected) NKA Past Medical/ Family/ Social History Medical history: Negative, BP elevated on every check over the past several years. Saw Dr. mSith, nomeds yet.. Surgical history: Negative. Family history: . No family history items have been selected or recorded. Physical Examination Vital Signs Vital Signs. 03/22/2013 11:28 CDT Temperature Core 37.0 DegC Peripheral Pulse Rate 49 /min <LLOW Respiratory Rate 12 /min LOW SpO2 99 % Systolic Blood Pressure 153 mmHg HI Diastolic Blood Pressure 96 mmHg >HHI Mean Arterial Pressure 115 mmHg BP Location Right upper Measurements. 03/22/2013 11:28 CDT Dosing Weight 61 kg Estimated Weight 61 kg SpO2. 03/22/2013 11:28 CDT SpO2 99 % General: Alert and no acute distress. Skin: Warm, dry and pink. Head: Normocephalic. Neck: Supple and no tenderness. Eye: Pupils are equal, round and reactive to light. Ears, nose, mouth and throat: Tympanic membranes clear, oral mucosa moist and Nylen-Barany maneuversnegative. Cardiovascular: Regular rate and rhythm. Respiratory: Respirations are non-labored. Back: Nontender. Musculoskeletal: Normal ROM Chest wall Genitourinary Neurological: No focal neurological deficit observed. Lymphatics: No lymphadenopathy. Medical Decision Making Differential Diagnosis:Vertigo. Patient reports consistently elevated BP readings on every check over several years. Will initiate treatment and refer back to primary MD. Reexamination/ Reevaluation meclizine (better) Impression and Plan Diagnosis Vertigo 780.4 (Discharge, Emergency medicine, Medical) Plan Condition: Improved, Stable. Disposition: Discharged: Time 03/22/2013 13:16:00, to home. Prescriptions: Prescription Nuclear Medical Technologist. Pharmacy: meclizine 25 mg oral tablet (Prescribe): 25 mg, 1 tab(s), PO, 3xDay, 30 tab(s), PRN, Dizziness lisinopril 10 mg oral tablet (Prescribe): 10 mg, 1 tab(s), PO, Daily, 90 tab(s) Patient was given the following educational materials: MECLIZINE, HYPERTENSION, New (Begin Tx), LABYRINTHITIS. Follow up with: YAHIR SMITH In 2 weeks 04/05/2013. Counseled: Patient. Electronically Signed By: JOHN OROURKE MD On: 03/22/2013 01:26 PM Modified by and Electronically Signed by: JOHN OROURKE MD On: 03/22/2013 01:26 PM Source: [facility] POWERCHART Document Id: [id number]} Conversion, Historical Provider Ser - 03/22/2013 1:00 PM CDT ED Nurse Reassess ED Nurse Reassess Entered On: 03/22/2013 13:01 CDT Performed On: 03/22/2013 13:00 CDT by JO HONG RN Pain Assessment Pain Symptoms : No JO HONG RN - 03/22/2013 13:00 CDT Neuro Reassess Last Well Time Known : Not applicable Orientation : Oriented x 3 Characteristics of Speech : Clear Level of Consciousness : Alert Neuro Patient Stated Symptoms : Dizziness ALLISON : Yes Facial Symmetry : Normal Extremity Movement : Equal Extremity Sensation : Normal Speech Characteristics : Normal Neuro Note : dizziness improved after meclizine. A&O on cart with no distress JO HONG RN - 03/22/2013 13:00 CDT Source: [employer] Document Id: [id number] CDT!15 Conversion, Historical Provider Ser - 03/22/2013 11:53 AM CDT ED Treatments and Procedures ED Treatments and Procedures Entered On: 03/22/2013 11:57 CDT Performed On: 03/22/2013 11:53 CDT by JO HONG RN Orthostatics Systolic Blood Pressure Supine : 132 mmHg Diastolic Blood Pressure Supine : 81 mmHg Pulse Supine : 55 /min Patient Response Supine : No response Systolic Blood Pressure Sitting : 148 mmHg Diastolic Blood Pressure Sitting : 88 mmHg Pulse Sitting : 50 /min Patient Response Sitting : No response Systolic Blood Pressure Standing : 154 mmHg Diastolic Blood Pressure Standing : 91 mmHg Pulse Standing : 53 /min Patient Response Standing : No response BP Location Orthostatics : Left upper extremity Blood Pressure Cuff Size Orthostatics : Regular JO HONG RN - 03/22/2013 11:53 CDT Source: [employer] Document Id: [id number] CDT!16 documented in this encounter Miscellaneous Notes Miscellaneous - Conversion, Historical Provider Ser - 03/22/2013 1:37 PM CDT Valuables/Belongings Valuables/Belongings Entered On: 03/22/2013 13:37 CDT Performed On: 03/22/2013 13:37 CDT by JO HONG RN Valuables/Belongings Home Medication Disposition : None brought in with patient JO HONG RN - 03/22/2013 13:37 CDT Source: [facility] [employer] Document Id: [id number] CDT!3 Miscellaneous - Conversion, Historical Provider Ser - 03/22/2013 11:24 AM CDT Facility Charge Ticket Facility Charge Ticket Entered On: 03/22/2013 13:37 CDT Performed On: 03/22/2013 11:24 CDT by JO HONG RN Facility Charge TVL Level Translated RTF : Dizziness TVL:4 TVL Level for Facility Charge Ticket : Level 4 Mode of Arrival ED : Private vehicle [facility] Mode of Arrival Interpreted : Standard [facility] Process Management : None [facility] Order Management : None 30 Minutes Critical Care : No Nursing Notes RTF : Nursing Notes ED Primary Assessment,03/22/13 11:28,JO HONG PHARMACY SALESPERSON Nurse Reassess,03/22/13 13:00,JO HONG RN [facility] Nursing Assessment : Triage and 1-2 nursing assessments Disposition RTF : discharge [facility] Disposition : Discharge [facility] Total Points with Diagnosis Control : 7 [facility] Visit Level : 56627 Level 3 JO HONG RN - 03/22/2013 13:37 CDT [facility] Document Id: [id number] CDT!15 documented in this encounter Plan of Treatment Not on filedocumented as of this encounter Visit Diagnoses Not on filedocumented in this encounter
--- OUTSIDE RECORDS SUMMARY | 2022-08-21 10:45 | XMS_ITS | Encounter Summary ---
:1970 Author Organization [facility] Address [address] [place] [address] Care Team Providers Name Role Phone Savita Coronado M.D. Primary Care Provider Encounter Details Date Type Department Care Team Description 01/17/2018 Orders Only Department of Family [facility] in [place], [address] [place] [address] [place] [address] Social History Tobacco Use Types Packs/Day Years Used Date Smoking Tobacco: Never Sex Assigned at Date Recorded Not on file documented as of this encounter Plan of Treatment Not on filedocumented as of this encounter Visit Diagnoses Not on filedocumented in this encounter Care Teams Positive Printer Operator Relationship Specialty Start Date End Date Savita Coronado M.D. PCP - General 03/07/17 05/23/19 [address] [place] [address] documented as of this encounter
--- OUTSIDE RECORDS SUMMARY | 2022-08-21 10:45 | XMS_ITS | Encounter Summary ---
:1970 Author Organization [facility] Address [address] [place] [address] Care Team Providers Name Role Phone Savita Coronado M.D. Primary Care Provider Encounter Details Date Type Department Care Team Description 07/02/2018 Orders Only Department of Family Yen[facility] Schultz [facility] in [place], [address] [place] [address] [place] [address] Social History Tobacco Use Types Packs/Day Years Used Date Smoking Tobacco: Never Sex Assigned at Date Recorded Not on file documented as of this encounter Plan of Treatment Not on filedocumented as of this encounter Visit Diagnoses Not on filedocumented in this encounter Care Teams Wire Photo Operator Relationship Specialty Start Date End Date Savita Coronado M.D. PCP - General 03/07/17 05/23/19 [address] [place] [address] documented as of this encounter
[2022-08-21 14:24] LABS: Chloride* 104 mmol/L (96-114); Sodium* 138 mmol/L (135-149)
[2022-08-21 14:27] LABS: Blood Urea Nitrogen* 13 mg/dL (7-30); Carbon Dioxide* 27 mmol/L (20-32); Cholesterol* 191 mg/dL (90-199); Creatinine* 0.8 mg/dL (0.5-1.5); Estimated Glomerular Filt Rate 106 ml/min
[2022-08-21 14:28] LABS: Calcium* 9.5 mg/dL (8.4-10.6); Glucose* 86 mg/dL (60-115); HDL Cholesterol* 77 mg/dL (>=40); LDL Cholesterol Calculated 100 mg/dL (<100); Triglycerides* 72 mg/dL (40-149)
[2022-08-21 14:59] LABS: PSA Screen* 1.15 ng/mL (0.10-4.00)
== END 2022-08-21 10:10 | disposition home or self-care (01) ==
PROVIDERS: PCP Family Medicine; Visit Provider Family Medicine
DX: Z00.00 Encounter for general adult medical examination without abnormal findings (principal); I10 Essential (primary) hypertension; Z12.5 Encounter for screening for malignant neoplasm of prostate; Z13.6 Encounter for screening for cardiovascular disorders; Z13.0 Encounter for screening for diseases of the blood and blood-forming organs and certain disorders involving the immune mechanism
CPT/HCPCS: 80048; 80061; 84153

== ENCOUNTER 2023-10-08 06:33 | Outpatient (CLI) | payer OTHER, SELFPAY ==
--- NOTE | 2023-10-08 08:03 | W.ANESCHARGE ---
Anesthesia Charges Start Date/Time Anesthesia Start Date: 10/08/23 Anesthesia Start Time: 07:19 Stop Date/Time Anesthesia Stop Date: 10/08/23 Anesthesia Stop Time: 07:55
--- NOTE | 2023-10-08 08:40 | W.ANESCHARGE ---
Anesthesia Charges Start Date/Time Anesthesia Start Date: 10/08/23 Anesthesia Start Time: 07:19 Stop Date/Time Anesthesia Stop Date: 10/08/23 Anesthesia Stop Time: 07:55
== END 2023-10-08 06:34 | disposition home or self-care (01) ==
LOC: OP CLINIC 06:34
PROVIDERS: PCP Family Medicine; Visit Provider Surgery
DX: K63.5 Polyp of colon (principal); Z86.010 Personal history of colon polyps
CPT/HCPCS: 00811; 45380; 45385; 88305; J2704

== ENCOUNTER 2025-02-10 10:09 | Outpatient (CLI) | payer OTHER, SELFPAY | END 2025-02-10 10:10 | disposition home or self-care (01) | PROVIDERS: PCP Family Medicine; Visit Provider Family Medicine | DX: Z00.01 Encounter for general adult medical examination with abnormal findings (principal); I10 Essential (primary) hypertension; Z12.5 Encounter for screening for malignant neoplasm of prostate | CPT/HCPCS: 80048; G0103 ==